=== PATIENT | female | born 2000 | race African-American/Black ===

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

== ENCOUNTER 2022-03-09 15:46 | Emergency (ER) | payer MEDICAID ==
[~2022-03-09] VITALS: Ht 162.6 cm; Wt 55.0 kg
[~2022-03-09 15:46] MED LIST changes: +CEPH500C2 MT; +IBUP-2028 MT; +SULF1TAB48 MT
[2022-03-09] MEDS ORDERED: IBUPROFEN 600MG TABLET PO ONE (17:00)
[2022-03-09] MEDS ORDERED: BACITRACIN ZINC OINT UDPKT TOP ONE (17:00)
[2022-03-09] MEDS ORDERED: ACETAMINOPHEN 325MG TABLET PO ONE (17:00)
[2022-03-09] MEDS ORDERED: LIDOCAINE HCL/PF 1% 10 MG/ML 5ML VIAL INFIL ONE (17:00)
[2022-03-09] MEDS ORDERED: TETANUS, DIPHTHERIA, PERTUSSIS VAC/PF 0.5ML (>10YR OLD) IM ONE (17:00)
[2022-03-09 17:25] VITALS: BP 136/78
[2022-03-09] MEDS ORDERED: LORAZEPAM 0.5MG TABLET PO ONE (18:15)
[2022-03-09] MEDS ORDERED: BO1 TP (18:50)
== END 2022-03-09 19:26 | disposition home or self-care (01) ==
LOC: ER 15:46
DX: S01.81XA Laceration without foreign body of other part of head, initial encounter (principal); Z90.49 Acquired absence of other specified parts of digestive tract; Z98.890 Other specified postprocedural states; V49.9XXA Car occupant (driver) (passenger) injured in unspecified traffic accident, initial encounter; Y93.89 Activity, other specified; Y92.89 Other specified places as the place of occurrence of the external cause; Y99.8 Other external cause status
CPT/HCPCS: 12015; 90471; 90715; 99284; J3490; Z7610